=== PATIENT | female | born 1945 | race Caucasian/White ===

== ENCOUNTER 2024-03-12 19:37 | Emergency (ER) | payer MEDICARE, OTHER, SELFPAY ==
[2024-03-12 19:52] VITALS: BP 200/71; PULSE 71; RESP 16; TEMP 36.5; O2SAT 98; BMI 21.7
--- NOTE | 2024-03-12 20:02 | CTR_ITS ---
PROCEDURE INFORMATION: Exam: CT Head Without Contrast Exam date and time: 03/12/2024 8:13 PM Age: 79 years old Clinical indication: Injury or trauma; Fall; Concussion/head injury and swelling (edema); Patient HX: Left eye swelling and bruising, nose bleeding TECHNIQUE: Imaging protocol: Computed tomography of the head without contrast. Radiation optimization: All CT scans at this facility use at least one of these dose optimization techniques: automated exposure control; mA and/or kV adjustment per patient size (includes targeted exams where dose is matched to clinical indication); or iterative reconstruction. COMPARISON: CT facial bones wo con* [id number] 03/12/2024 8:13 PM RADIATION DOSE METRICS: Total DLP (mGy-cm): 1127 FINDINGS: Brain: No hemorrhage. No edema. Moderate diffuse cerebral atrophy and mild sequela of chronic small vessel disease. No mass effect. Cerebral ventricles: No ventriculomegaly. Paranasal sinuses: Trace hemorrhage in the left maxillary sinus. Mastoid air cells: Visualized mastoid air cells are well aerated. Bones: No acute calvarial fracture. Fractures through the anterior left maxilla. Soft tissues: Unremarkable. CT/CT head wo con* [id number] IMPRESSION: 1. No acute intracranial abnormality. 2. Fracture through the left maxilla.
--- NOTE | 2024-03-12 20:02 | CTR_ITS ---
PROCEDURE INFORMATION: Exam: CT Cervical Spine Without Contrast Exam date and time: 03/12/2024 8:13 PM Age: 79 years old Clinical indication: Injury or trauma; Fall; Blunt trauma; Patient HX: Left eye swelling and bruising, nose bleeding TECHNIQUE: Imaging protocol: Computed tomography of the cervical spine without contrast. Radiation optimization: All CT scans at this facility use at least one of these dose optimization techniques: automated exposure control; mA and/or kV adjustment per patient size (includes targeted exams where dose is matched to clinical indication); or iterative reconstruction. COMPARISON: CT facial bones wo con* [id number] 03/12/2024 8:13 PM RADIATION DOSE METRICS: Total DLP (mGy-cm): 317 FINDINGS: Bones: No acute fracture. Normal alignment. No significant disc bulge or herniation. No severe spinal canal stenosis. No significant neural foraminal narrowing. Lungs: Biapical scarring. Soft tissues: Unremarkable. CT/CT cervical spin wo con* [id number] IMPRESSION: No acute findings.
--- NOTE | 2024-03-12 20:02 | XRR_ITS ---
PROCEDURE INFORMATION: Exam: XR Left Ribs with PA Chest Exam date and time: 03/12/2024 8:08 PM Age: 79 years old Clinical indication: Injury or trauma; Fall; Rib area, left side; Blunt trauma TECHNIQUE: Imaging protocol: Radiologic exam of the left ribs with PA chest. Views: 3 views COMPARISON: No relevant prior studies available. FINDINGS: Lungs: The lungs are adequately expanded. No focal consolidations or pulmonary edema. Pleural spaces: No pleural effusions or pneumothorax. Heart/Mediastinum: No cardiomegaly. Bones/joints: No acute fractures. XR/XR ribs LT mn 3V w CXR1V [id number] IMPRESSION: No acute pulmonary disease. No acute rib fractures are seen.
--- NOTE | 2024-03-12 20:02 | ED_ITS ---
HPI - Fall General: Chief Complaint: Fall Stated Complaint: fell left side face, nose, both legs Time Seen by Provider: 03/12/24 19:58 Source: patient Mode of arrival: ambulatory Limitations: no limitations History of Present Illness: 79-year-old female states she is walking upstairs this afternoon around 3 PM and fell. She did hit her face she mainly complains of left facial pain she denies any loss of conscious states she has a slight headache slight neck pain. She also has left great toe pain and left rib pain. She said that she had some intermittent nosebleeds does take blood thinners for A-fib Associated symptoms-after fall: Reports chest pain, headache(s) and neck pain; Denies abdominal pain Related Data Home Medications Medication Instructions Recorded Confirmed acyclovir 200 mg capsule 200 mg PO TID 08/28/21 08/28/21 digoxin 250 mcg (0.25 mg) tablet 250 mcg PO DAILY 08/28/21 08/28/21 metoprolol succinate 50 mg 50 mg PO DAILY 08/28/21 08/28/21 tablet,extended release 24 hr rivaroxaban 20 mg tablet (Xarelto) 20 mg PO DAILY 08/28/21 08/28/21 Previous Rx's Medication Instructions Recorded cephalexin 500 mg capsule 500 mg PO TID 7 days #21 caps 03/12/24 hydrocodone 5 mg-acetaminophen 325 1 tab PO Q6H PRN pain #14 tabs 03/12/24 mg tablet Allergies Allergy/AdvReac Type Severity Reaction Status Date / Time diphenhydramine Allergy ADR-Fatigue Verified 03/12/24 19:56 [From Benadryl] d novocaine Allergy Unknown Unknown Uncoded 08/28/21 11:43 Review of Systems Const: Denies: fever(s), chills, body aches or change in appetite Eyes: Denies: blurry vision or eye discomfort ENMT: Reports: epistaxis; Denies: throat pain or dental pain Card: Reports: chest pain Resp: Denies: dyspnea GI: Denies: abdominal pain, nausea, vomiting or diarrhea Musc: Reports: neck pain; Denies: back pain Skin/Breast: Denies: rash Neuro: Reports: headache(s) Physical Exam Const: COMMON NORMALS: no acute distress, patient oriented x3 and healthy appearing HENMT: COMMON NORMALS: normocephalic; head/scalp not atraumatic HEAD & SCALP: normocephalic; not atraumatic OTHER: Tenderness to left side of the face with swelling no active bleeding from left nare dried blood noted Eye: COMMON NORMALS: Equal, round and reactive pupils present and EOMs intact bilaterally PUPIL: Yes Equal, round and reactive pupils present Neck/C-Spine: OTHER: Slight tenderness along neck Chest: COMMONS NORMALS: normal inspection of the chest OTHER: Enteritis over left lateral ribs Resp: COMMON NORMALS: normal respiratory effort, No retractions, No use of accessory muscles and clear to auscultation bilaterally AUSCULTATION: clear to auscultation bilaterally Cardio: COMMON NORMALS: regular rate, regular rhythm and No murmurs present (Cardio) RATE: regular rate RHYTHM: regular rhythm GI: COMMON NORMALS: Normal to inspection, nondistended, normoactive bowel sounds present, Soft to palpation, non-tender and no masses PALPATION: Yes Soft to palpation Extremity: COMMON NORMALS: normal to inspection and full ROM Neuro: COMMON NORMALS: patient oriented x3, moves all extremities and no focal motor deficits Psych: COMMON NORMALS: mental status grossly normal, Normal thought process present and cooperative THOUGHT PROCESS: Normal thought process present Skin: COMMON NORMALS: no rashes or lesions noted and no wounds GENERAL SKIN EXAM: no rashes or lesions noted Course Vital Signs: Vital signs: Vital Signs Temperature 97.7 F 03/12/24 19:52 Pulse Rate 71 03/12/24 19:52 Respiratory Rate 16 03/12/24 19:52 Blood Pressure 200/71 03/12/24 19:52 Pulse Oximetry 98 03/12/24 19:52 Oxygen Delivery Me thod Room Air 03/12/24 19:52 MDM - Fall Medical Decision Making Patient presents here with maxillary fracture from a fall other imaging is normal here she is well-appearing here she stable for discharge we will place her on pain meds we will get her follow-up in 2 Medical Records I reviewed the patient's medical records. Lab Data Radiology Impressions Cervical Spine CT 03/12/24 20:02 IMPRESSION: No acute findings. Face CT 03/12/24 20:02 IMPRESSION: Fracture through the left maxilla. Foot X-Ray 03/12/24 20:02 IMPRESSION: No acute fractures or subluxations. Head CT 03/12/24 20:02 IMPRESSION: 1. No acute intracranial abnormality. 2. Fracture through the left maxilla. Ribs X-Ray 03/12/24 20:02 IMPRESSION: No acute pulmonary disease. No acute rib fractures are seen. All radiology interpretation(s) finalized by discharge Discharge Plan Discharge Patient Disposition: Home Clinical Impression: Closed fracture of left side of maxilla Condition: Stable Prescriptions: New hydrocodone-acetaminophen 5-325 mg tablet 1 tab PO Q6H PRN (Reason: pain) Qty: 14 0RF cephalexin 500 mg capsule 500 mg PO TID 7 Days Qty: 21 0RF No Action metoprolol succinate 50 mg tablet extended release 24 hr 50 mg PO DAILY digoxin 250 mcg (0.25 mg) tablet 250 mcg PO DAILY acyclovir 200 mg capsule 200 mg PO TID Xarelto 20 mg tablet 20 mg PO DAILY Rx Instructions: must administer with evening meal Discharge Orders: Discharge ED (Routine); Ordered 03/12/24 Ordered By: Paulette Lopez Referrals: Hank Aguilar MD [Physician] - 1-3 days Judah Rowan MD [Primary Care Provider] - Discharge Diet: Advance as tolerated Discharge Activity: Resume usual activity Patient Instructions: Facial Fracture (ED), Opioid Safety Coding Level of Care Code 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
--- NOTE | 2024-03-12 20:02 | CTR_ITS ---
PROCEDURE INFORMATION: Exam: CT Maxillofacial Without Contrast Exam date and time: 03/12/2024 8:13 PM Age: 79 years old Clinical indication: Injury or trauma; Fall; Mass, lump, or swelling; Location not specified; Concussion/head injury; Loss of consciousness not known; Patient HX: Left eye swelling and bruising, nose bleeding TECHNIQUE: Imaging protocol: Computed tomography of the face without contrast. Radiation optimization: All CT scans at this facility use at least one of these dose optimization techniques: automated exposure control; mA and/or kV adjustment per patient size (includes targeted exams where dose is matched to clinical indication); or iterative reconstruction. COMPARISON: CT head wo con* [id number] 03/12/2024 8:13 PM RADIATION DOSE METRICS: Total DLP (mGy-cm): 655 FINDINGS: Orbital cavities: Orbits are normal. Globes are unremarkable. Paranasal sinuses: Trace hemorrhage in the left maxillary sinus. Bones: Fracture through the anterior left maxilla. Soft tissues: Left cheek contusion. CT/CT facial bones wo con* [id number] IMPRESSION: Fracture through the left maxilla.
--- NOTE | 2024-03-12 20:02 | XRR_ITS ---
PROCEDURE INFORMATION: Exam: XR Left Foot Exam date and time: 03/12/2024 8:07 PM Age: 79 years old Clinical indication: Injury or trauma; Fall; Blunt trauma; Foot; Left TECHNIQUE: Imaging protocol: Radiologic exam of the left foot. Views: 3 or more views. COMPARISON: No relevant prior studies available. FINDINGS: Bones/joints: No acute fractures or subluxations. Degenerative changes of the foot with joint space narrowing. The bones are osteopenic. Soft tissues: Normal. XR/XR foot LT min 3V* [id number] IMPRESSION: No acute fractures or subluxations.
[2024-03-12] MEDS: HYDROcodone-acetaminophen 5-325 mg Tablet 1 TAB PO (20:23)
[2024-03-12 20:30] VITALS: BP 190/95; PULSE 83; RESP 16; O2SAT 97
[2024-03-12 21:00] VITALS: BP 185/84; PULSE 61; RESP 15; O2SAT 97
--- NOTE | 2024-03-14 18:13 | DCPLANNER ---
faxed to ent for er f/u
--- NOTE | 2024-03-14 18:14 | DCPLANNER ---
faxed referral to dr zhao for er f/u
== END 2024-03-12 21:41 | disposition home or self-care (01) ==
PROVIDERS: Emergency Provider Emergency Medicine; Family Provider Family Medicine; PCP Family Medicine
DX: S02.40DA Maxillary fracture, left side, initial encounter for closed fracture (principal); W19.XXXA Unspecified fall, initial encounter
CPT/HCPCS: 70450; 70486; 71101; 72125; 73630; 99284

== ENCOUNTER 2024-07-30 06:00 | Outpatient (RCR) | payer MEDICARE, OTHER, SELFPAY | END 2024-07-31 23:59 | disposition home or self-care (01) | LOC: SPT 06:00 | PROVIDERS: Visit Provider Internal Medicine | DX: M54.9 Dorsalgia, unspecified (principal) | CPT/HCPCS: 97140; 97161 ==